=== PATIENT | female | born 1945 | race Two or more races ===

== ENCOUNTER → 2020-10-04 | Day surgery (SDC) | payer MEDICARE ==
[~2020-10-04] VITALS: Ht 150 cm; Wt 56.7 kg
[2020-10-04] VITALS (10 sets, daily range): BP systolic 111–156; BP diastolic 55–73
[~2020-10-04] MED LIST: ALBUTEROL2.5 MG/3 M INH; AMLODIPINE BESY10 MG ORAL; ASPIRIN81 MG ORAL; BSS 15ml BTL ONE; BSS 500ml btl ONE; EPINEPHrine 1mg/1ml Amp ONE; GLIPIZIDE5 MG ORAL; LISINOPRIL40 MG ORAL; LR 1000ml 1,000 ML IVLG SCH; LR 1000ml ONE; Lidocaine 1% MPF 10mg/ml 5ml ONE; MECLIZINE HCL12.5 MG ORAL; METFORMIN HCL850 M1 ORAL; NS Irrig 1000ml ONE; Povidone-Iodine 5% opth solution ONE; Sodium Hyaluronate 10 mg/ml 0.85ml ONE; Sterile Water Irrig 1000ml IRRIG ONE; VITAMIN D210 MCG PO; VITAMIN D325 MC1 PO; fentaNYL 100 mcg/2 mL IV ONE; fentaNYL 100 mcg/2 mL IV PRN
[2020-10-04] MEDS: Phenylephrine 10% Opth Soln 5ml LEFT EYE SCH ×3 (06:38→06:50)
[2020-10-04] MEDS: Tropicamide 1% Opth 15ml Soln LEFT EYE SCH ×3 (06:38→06:50)
[2020-10-04] MEDS: Akten 3.5% 1ml Btl LEFT EYE SCH ×3 (06:38→06:50)
[2020-10-04] MEDS: Vigamox Opth Soln 3ml LEFT EYE SCH ×3 (06:38→06:50)
[2020-10-04] MEDS: Diclofenac Sod 0.1% Op Soln LEFT EYE SCH ×3 (06:38→06:50)
--- NOTE | 2020-10-04 07:51 | Anethesia Preoperative Eval ---
Anesthesia Pre-op PMH/ROS General Date of Evaluation: Oct 04, 2020 Time of Evaluation: 07:48 Anesthesiologist: Sophie ASA Score: ASA 3 Mallampati Score Class I : Soft palate, uvula, fauces, pillars visible Class II: Soft palate, uvula, fauces visible Class III: Soft palate, base of uvula visible Class IV: Only hard plate visible Mallampati Classification: Class II Surgeon: Chio Diagnosis: L eye cataract Surgical Procedure: Cataract extraction Anesthesia History: none Family History: no anesthesia problems Allergies: Coded Allergies: No Known Allergies (Unverified , 10/02/20) Medications: see eMAR Patient NPO?: Yes Past Medical History Cardiovascular: Reports: HTN - stable on meds; Denies: CAD, MD, valve dz, arrhythmia, other Pulmonary: Denies: asthma, COPD, FROYLAN, other Gastrointestinal/Genitourinary: Reports: GERD; Denies: CRI, ESRD, other Neurologic/Psychiatric: Denies: dementia, CVA, depression/anxiety, TIA, other Endocrine: Reports: hypothyroidism; Denies: DM, steroids, other HEENT: Reports: cataract (L), cataract (R) - bilateral Hematology/Immune: Reports: anemia - mildf; Denies: DVT, bleeding disorder, other Musculoskeletal/Integumentary: Reports: OA; Denies: RA, DJD, DDD, edema, other PMH Narrative: as above PSxH Narrative: see H&P Anesthesia Pre-op Phys. Exam Physician Exam Last Vital Signs Date Time Temp Pulse Resp B/P (MAP) Pulse Ox O2 Delivery O2 Flow Rate FiO2 10/04/20 06:37 97.9 68 18 156/66 96 Room Air Constitutional: NAD Neurologic: CN 2-12 intact Cardiovascular: RRR Respiratory: CTA Gastrointestinal: S/NT/ND Airway Exam Mallampati Score: Class II MO: limited Neck: stiff ROM: limited Teeth: missing Dentures: no upper, no lower Anesthesia Pre-op A/P Labs see chart Studies Pre-op Studies: EKG - SR Risk Assessment & Plan Assessment: ASA 2 Plan: MAC Status Change Before Surgery: No Fredy Barrios MD Oct 04, 2020 07:51
--- NOTE | 2020-10-04 09:13 | Discharge Summary ---
Discharge Summary Discharge Summary Discharge Summary DATE OF ADMISSION:10/04/20 DATE OF DISCHARGE:10/04/20 REASON FOR HOSPITALIZATION: 1- cataract,left eye 2- astigmatism, left eye SURGERY PERFORMED: 1- Cataract extraction, left eye 2- LRI, left eye CONDITION IN THE HOSPITAL:The patient tolerated the surgery without complications. DISCHARGE CONDITION: The patient was stable at discharge. DISCHARGE MEDICATIONS: 1. Vigamox eye drops one drop q.i.d, 2. Prednisolone one drop q.i.d, 3. POSTOPERATIVE ORDERS: The patient has to rest at home. No bending, No lifting, No watching Television tonight. POSTOPERATIVE FOLLOW UP: The patient will be followed in my office tomorrow morning at 7 o'clock. Michael Barroso MD Oct 04, 2020 09:13
--- NOTE | 2020-10-04 09:17 | Immediate Post-Op Evaluation ---
Immediate Post-Op Evalulation Immediate Post-Op Evalulation Procedure: L eye cataract extraction with IOL Date of Evaluation: Oct 04, 2020 Time of Evaluation: 09:16 IV Fluids: 300 Blood Products: none Estimated Blood Loss: none Urinary Output: none Blood Pressure Systolic: 126 Blood Pressure Diastolic: 73 Pulse Rate: 64 Respiratory Rate: 20 O2 Sat by Pulse Oximetry: 99 Temperature (Fahrenheit): 97.8 Pain Score (1-10): 1 Nausea: No Vomiting: No Complications none Patient Status: awake, patent, none Hydration Status: adequate Fredy Barrios MD Oct 04, 2020 09:17
--- NOTE | 2020-10-04 09:17 | Brief Operative Note ---
Immediate Post Operative Note Operative Note Chief Complaint: Blurry visio. difficulty watching TV Pre-op Diagnosis: 1- Cataract, left eye 2-Astigmatism, left eye Procedure: 1- Cataract extraction with phaco, left eye 2-LRI, left eye Post-op Diagnosis: Same Post-op Diagnosis: same as pre-op Surgeon: Michael Barroso Coal Trimmer: None Additional Surgeons: None Anesthesiologist: Dr. Barrios Anesthesia: MAC Specimen: none Complications: none Condition: stable Fluids: 300 ml Estimated Blood Loss: none Drains: none Implant(s) used?: Yes - Monofoca IOl implanted in the left eye plus LRI left eye Michael Barroso MD Oct 04, 2020 09:17
--- NOTE | 2020-10-04 11:09 | 48 Hour Post Anesthesia Eval ---
Post Anesthesia Evaluation Procedure: L eye cataract extraction with IOL Date of Evaluation: Oct 04, 2020 Time of Evaluation: 11:08 Blood Pressure Systolic: 136 0: 72 Pulse Rate: 72 Respiratory Rate: 20 Temperature (Fahrenheit): 97.6 O2 Sat by Pulse Oximetry: 98 Airway: patent Nausea: No Vomiting: No Pain Intensity: 1 Hydration Status: adequate Cardiopulmonary Status: stable Mental Status/LOC: patient returned to baseline Follow-up Care/Observations: n/a Post-Anesthesia Complications: none Follow-up care needed: ready to discharge Fredy Barrios MD Oct 04, 2020 11:09
--- NOTE | 2020-10-09 07:29 | Operative Note - Dictated ---
DATE OF OPERATION: 10/04/2020 FACILITY: [facility]. SURGEON: Michael Barroso M.D. ANESTHESIOLOGIST: Fredy Barrios M.D. ANESTHESIA: Monitored anesthesia care (MAC). PREOPERATIVE DIAGNOSES: 1. Cataract, left eye. 2. Astigmatism, left eye. POSTOPERATIVE DIAGNOSES: 1. Cataract, left eye. 2. Astigmatism, left eye. SURGERY PERFORMED: 1. Cataract extraction with phacoemulsification and posterior chamber intraocular lens implantation in the left eye. 2. Limbal relaxing incision (LRI), left eye. INDICATION FOR SURGERY: The patient is a 75-year-old lady with history of diabetes mellitus, arthritis, hypertension, hypercholesterolemia, and history of Almanzar palsy. She is not allergic to any medication. She . She is using medications including simvastatin, pain medication, amlodipine, metformin, and acyclovir 400 mg daily. 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 Now she is complaining of blurred vision in the left . The cornea is clear. Anterior chamber is clean and quiet and is shallow. Pupillary reflexes are normal. There is no RAPD. There is . There is 4+ nuclear sclerosis and 2+ cortical cataract. Funduscopy shows normal optic disc, normal macula, and periphery retina is flat. To improve her vision in the left eye, the cataract has to be removed. Particularly, intraocular lens has to be implanted and astigmatism has to be addressed as well. INFORMED CONSENT: The nature of the surgery, risks, benefits, alternatives, and potential complications were all explained in detail to the patient in her language through an project structural engineer. The potential complications including, but not limited to, infection, posterior capsular rupture, lens subluxation, flat anterior chamber, endophthalmitis, wound leakage, macular edema, corneal edema, uveitis, retinal detachment, loss of vision, loss of the eye, and even were all explained in detail to the patient. The patient voiced understanding and accepted all the complications. The alternatives including multifocal lens, trifocal lens, and toric lens were all explained in detail to the patient. The patient voiced understanding. The patient elected to have conventional cataract surgery with monofocal DCB00 IOL insertion with limbal relaxing incision for astigmatism. Then, she signed the consent form, which is in the chart. DESCRIPTION OF SURGERY AND FINDINGS: Following that, the patient was taken to the operation room in a stable condition. Akten 3.5% was applied to the conjunctiva of the left eye. IV sedation was given by the anesthesiologist, Dr. Barrios. After adequate anesthesia and sedation had been achieved, the left eye was prepped and draped in the sterile fashion for intraocular surgery. Following that, a lid speculum was placed in the left eye. Before the patient was taken to the operation room, the cornea was marked at 180 and 90 degree meridian. In the operating room, using a corneal marker and marking pen, the steep meridian of the cornea was marked. Following that, using the rufina knife with 550 micron blade, 2 parallel incisions were placed on the steep meridian of the cornea to treat the astigmatism. Following that, using a Super Sharp knife, a clear corneal side port was created. Lidocaine 1% without preservative (MPF) was injected into the anterior chamber. Following that, Viscoelastic agent, Healon, was injected into the anterior chamber. Following that, using a 2.4 mm keratome, clear corneal temporal keratotomy was performed. Following that, more viscoelastic agent was injected into the anterior chamber. Under the viscoelastic agent, an anterior capsulotomy was performed in the fashion of capsulorrhexis beautifully. Following that, whole viscoelastic agent was removed from the anterior chamber. Hydrodissection and hydrodelineation was performed using balanced salt solution and the nucleus was freed. Following that, viscoelastic agent, Healon, was injected into the anterior chamber again to protect the endothelium of the cornea. Following that, using a phacoemulsification machine in the fashion of horizontal chop, the nucleus was removed in toto. Following that, the cortical material was removed from the capsular bag and the capsular bag was polished using irrigation/aspiration unit. Following that, the capsular bag was filled with viscoelastic agent, Healon. Following that, a +24.0 Diopter DCB00 foldable IOL with serial number [id number] was injected into the capsular bag. Using a Sinskey hook, the lens was manipulated within the proper position. Following that, all the viscoelastic agent was removed from the anterior and posterior part of the lens and the anterior chamber was filled with balanced salt solution. The wound was hydrated with balanced salt solution. Vigamox, prednisolone eye drops were applied to the conjunctiva of the left eye. The patient tolerated the surgery without complications. At the end of the surgery, the eye was patched with a clear sterile fenestrated shield. Following that, the patient was transferred to the recovery room. In the recovery room, 125 mg Diamox was given by mouth stat. Postoperative orders and directions were given to the patient. The patient will be discharged home upon stabilization. The patient will be followed in my office tomorrow morning. Michael Barroso M.D. DR: TERESO JOB#: [id number] CC:
== END | disposition home or self-care (01) ==
LOC: SUR 06:08
DX: H25.12 Age-related nuclear cataract, left eye (principal); H25.012 Cortical age-related cataract, left eye; E11.9 Type 2 diabetes mellitus without complications; M19.90 Unspecified osteoarthritis, unspecified site; E78.00 Pure hypercholesterolemia, unspecified; I10 Essential (primary) hypertension; Z79.899 Other long term (current) drug therapy; K21.9 Gastro-esophageal reflux disease without esophagitis; E03.9 Hypothyroidism, unspecified
CPT/HCPCS: 66984; 66999; 94003; J0171; J1100; J2704; J3010; J7120; U0004; V2632; 94150